=== PATIENT | male | born 1970 | race Caucasian/White ===

== ENCOUNTER 2022-05-14 07:50 | Outpatient (CLI) | payer MEDICARE, SELFPAY ==
--- NOTE | 2022-06-02 16:42 | WPDHOMESLEEP ---
Sleep Study - Home Unattended Date of Study: 05/14/22 Ordering Provider: Lexy Ovalle DO Interpreting Provider: Lexy Ovalle DO Home Sleep Study Type: Apnea Link Air Height: 1.83 m Weight: 135.171 kg Body Mass Index: 40.4 Neck Circumference (inches): 19 [place]: 5 Reason for Sleep Study Loud snoring Sleep History The patient is a 52-year-old male with anxiety, depression, celiac disease, chronic pain, hyperlipidemia, schizophrenia,. And history of tobacco use that had a sleep study ordered for evaluation of sleep apnea. The patient occasionally awakens from sleep short of breath. He rarely awakens at night with heartburn, belching or cough. He constantly snores loud enough that others complain. He frequently has trouble sleeping when he has a cold. He rarely wakes up gasping for air throughout the night. He frequently has breathing problems at night observed by himself or others. He denies sweating excessively at night. He denies having heart palpitations or irregular heartbeats during the night. He rarely falls asleep during the day rarely falls asleep while driving. He denies cataplexy. He rarely has trouble at school or work due to sleepiness. He occasionally feels unable to move while waking up or falling asleep. He denies experiencing vivid dreamlike scenes upon awakening or falling asleep. He constantly feels afraid of going to sleep. He rarely has nightmares rarely remembers his dreams. He occasionally has thoughts racing through his mind. He rarely feels sad or depressed. He occasionally has anxiety. He constantly has muscular tension. He occasionally notices parts of his body jerk. He rarely kicks during the night. He denies having crawling and aching feelings in his legs but constantly has leg pain during the night. He occasionally grinds his teeth during sleep rarely awakens with a morning type pain. He is constantly bothered by pain during the day and rarely awakened by pain during the night. He frequently wakes up feeling stiff in the morning. He occasionally wakes up with sore or achy muscles. He rarely wakes up with pain in the neck, spine and other joints. He goes to bed at 1:00 a.m. on weekdays and between 1-3 a.m. on the weekends. It takes him 20-30 minutes to fall asleep. He wakes up 2-4 times at the night to urinate. He is able to fall back asleep within 10-30 minutes. He wakes up at 9:00 a.m. on weekdays between 9:00 a.m. to noon the weekends. He typically gets 6-8 hours of sleep per night. He will stay in bed for 5-10 minutes after waking up in the morning. He will consume caffeinated beverages within 2 hours of bedtime. He does not engage in physical exercise before bedtime. He he will read and watch television before falling asleep. He denies taking naps in the afternoon or the evening. He will drink caffeinated beverages throughout the day. He rarely drinks. He quit smoking cigarettes 14 years ago. He denies recreational drug use. [facility] Past Medical History Medical History Celiac disease Chronic pain Hyperlipidemia Schizophrenia Surgical History Surgical History Previous back surgery Lumbar injections 04/30/2021 Family History Family History Other Diabetes mellitus Family history of alcoholism Family history of cardiovascular disease Family history of lung disease Family history of malignant neoplasm Family history of mental disorder Social History Social History Social History: Caffeine-coffee,tea,soda Smoking status: Former smoker Smoking end date: 06/17/07 Alcohol intake: current Alcohol use details: yearly Substance use: current Substance use type: marijuana Medications Home Medications Medica
[2022-06-02 16:55] VITALS: BMI 40.4
--- NOTE | 2022-09-14 10:29 | SLEEP ---
new calls [phone]
== END 2022-05-15 10:29 | disposition home or self-care (01) ==
LOC: ANHCSM 07:55
PROVIDERS: PCP Family Medicine; Visit Provider Family Medicine
DX: G47.9 Sleep disorder, unspecified (principal); G47.33 Obstructive sleep apnea (adult) (pediatric)
CPT/HCPCS: 95806

== ENCOUNTER 2022-07-27 08:06 | Outpatient (CLI) | payer MEDICARE, MEDICAID, SELFPAY ==
--- NOTE | 2022-08-20 17:35 | WPDSLEEPSTUD ---
Sleep Study Date of Study: 07/27/22 Ordering Provider: Lexy Ovalle DO Interpreting Physician: Gwendolyn Faustin MD Sleep Study Type: CPAP Titration Height: 1.82 m Weight: 131.542 kg Body Mass Index: 39.9 Neck Circumference (inches): 20 [place]: 5 Reason for Sleep Study * 05/14/2022- Home sleep test with Apnea Link showing severe obstructive sleep apnea, AHI 42.9, desaturation 83% The patient presents for a PAP titration. Sleep History Fernando Salas is a 52-year-old man with anxiety, depression, celiac disease, chronic pain, hyperlipidemia, and schizophrenia.?He occasionally awakens from sleep short of breath.? He rarely awakens at night with heartburn, belching or coughing.? He constantly snores loudly enough that others complain.? He frequently has trouble sleeping when he has a cold.? He rarely wakes up gasping for air during the night.? He frequently has breathing problems at night observed by himself or others.? He denies sweating excessively at night.? He denies having heart palpitations or irregular heartbeats during the night.? He rarely falls asleep during the day rarely falls asleep while driving.? He denies cataplexy.? He rarely has trouble at school or work due to sleepiness.? He occasionally feels unable to move while waking up or falling asleep.? He denies experiencing vivid dreamlike scenes upon awakening or falling asleep.? He constantly feels afraid of going to sleep.? He rarely has nightmares rarely remembers his dreams.? He occasionally has thoughts racing through his mind.? He rarely feels sad or depressed.? He occasionally has anxiety.? He constantly has muscular tension.? He occasionally notices parts of his body jerk.? He rarely kicks during the night.? He denies having crawling and aching feelings in his legs but constantly has leg pain during the night.? He occasionally grinds his teeth during sleep rarely awakens with a morning type pain.? He is constantly bothered by pain during the day and rarely awakened by pain during the night.? He frequently wakes up feeling stiff in the morning.? He occasionally wakes up with sore or achy muscles.? He rarely wakes up with pain in the neck, spine and other joints.? Normal bedtime is 1:00 a.m. on weekdays and between 1:00 to 3:00 am on weekends.? It takes him 20-30 minutes to fall asleep.? He wakes up 2-4 times at the night to urinate.? He is able to return to sleep within 10-30 minutes.? He wakes up at 9:00 a.m. on weekdays between 9:00 a.m. to noon the weekends.? He typically gets 6-8 hours of sleep per night.? He will stay in bed for 5-10 minutes after waking up in the morning.? He will consume caffeinated beverages within 2 hours of bedtime.? He denies taking naps in the afternoon or the evening.? Habits: Tobacco: quit 14 years ago. Caffeine: He drinks caffeinated beverages throughout the day.? Alcohol: He rarely drinks alcohol, denies recreational substance. [facility] Past Medical History Medical History Celiac disease Chronic pain Hyperlipidemia Schizophrenia Surgical History Surgical History Previous back surgery Lumbar injections 04/30/2021 Family History Family History Other Diabetes mellitus Family history of alcoholism Family history of cardiovascular disease Family history of lung disease Family history of malignant neoplasm Family history of mental disorder Social History Social History Social History: Caffeine-coffee,tea,soda Smoking status: Former smoker Smoking end date: 06/17/07 Alcohol intake: current Alcohol use details: yearly Substance use: current Substance use type: marijuana Medications Home Medications Medication Instructions Recorded Confirmed Type baclofen 10 mg tablet 10 mg PO BID 11/15/20 10
[2022-08-20 18:50] VITALS: BMI 39.9
== END 2022-07-28 07:03 | disposition home or self-care (01) ==
LOC: ANHCSM 08:07
PROVIDERS: PCP Family Medicine; Visit Provider Family Medicine
DX: G47.33 Obstructive sleep apnea (adult) (pediatric) (principal); K90.0 Celiac disease; E78.5 Hyperlipidemia, unspecified; F20.9 Schizophrenia, unspecified; Z87.891 Personal history of nicotine dependence
CPT/HCPCS: 95811

== ENCOUNTER 2022-08-29 00:54 | Day surgery (SDC) | payer MEDICARE, MEDICAID, SELFPAY ==
[2022-08-21 12:36] VITALS: BMI 40.2
[2022-08-29] VITALS (7 sets, daily range): BP systolic 94–138; BP diastolic 47–88; PULSE 63–76; RESP 18–24; TEMP 36.6; O2SAT 96–100
[2022-08-29] MEDS: LACTATED RINGERS 1,000 ML 150 ML IV CONT (09:45)
--- NOTE | 2022-08-29 10:18 | WPDANESEPPF ---
Anes - Initial Pre Proc Eval Procedure: Operation Date: 08/29/22 10:30 Proposed Procedures p Screening Colonoscopy - Santos Restrepo MD Date/Time: 08/29/22 10:18 Surgeon: Santos Restrepo MD Pre Op Diagnosis: neoplasm screening Patient Data Age: 52 Gender: M Height: 1.8 m Weight: 129.7 kg Last Vital Signs Temp 97.8 F 08/29/22 09:32 Pulse 76 08/29/22 09:32 Resp 18 08/29/22 09:32 BP 138/88 08/29/22 09:32 Pulse Ox 96 08/29/22 09:32 O2 Del Method Room Air 08/29/22 09:32 Allergies Allergy/AdvReac Type Severity Reaction Status Date / Time fluphenazine Allergy Unknown Organ Verified 08/29/22 09:30 shutdown gluten Allergy Unknown Other Verified 08/29/22 09:30 haloperidol Allergy Unknown Organ Verified 08/29/22 09:30 shutdown Home Medications Medication Instructions Recorded Confirmed Type baclofen 10 mg tablet 10 mg PO BID 11/15/20 08/21/22 History naltrexone 50 mg tablet 4.5 mg PO DAILY 11/15/20 08/21/22 History gabapentin 300 mg capsule 600 mg PO TID 11/03/21 08/21/22 History omeprazole 20 mg capsule,delayed 20 mg PO DAILY #14 caps 11/03/21 08/21/22 Rx release mirtazapine 30 mg tablet 30 mg PO .HS 03/15/22 08/21/22 History multivitamin 1 tablet PO DAILY 04/11/22 08/21/22 History atorvastatin 20 mg tablet 20 mg PO QHS #90 tabs 05/14/22 08/21/22 Rx CPAP Equipment #1 ea 08/21/22 Rx Patient hx anesthesia problems: none Family hx anesthesia problems: none Results Review: All pre-operative results and documents have been reviewed as part of the pre-operative evaluation. ON LICENSE OF [facility] Past Medical History Medical History Celiac disease Chronic pain Hyperlipidemia Schizophrenia Surgical History Surgical History Previous back surgery Lumbar injections 04/30/2021 Family History Family History Other Diabetes mellitus Family history of alcoholism Family history of cardiovascular disease Family history of lung disease Family history of malignant neoplasm Family history of mental disorder Social History Social History Social History: Caffeine-coffee,tea,soda Years smoked: 1 Smoking status: Former smoker Tobacco type: cigarettes Smoking end date: 06/17/07 Alcohol intake: current Alcohol use details: yearly Substance use: current Substance use type: marijuana Other substance usage details: marijuana rarely Spiritual care concerns: No Anes - Eval Final PreProcedure Day of Procedure 08/29/22 10:18 Patient weight: morbidly obese Heart: regular rate and rhythm Lungs: clear to auscultation Airway: Mallampati scale class III Neurological: alert and oriented Last oral intake: >/= 8 hours ASA classification: III Emergent: no Anesthetic plan: proceed Anesthesia type and monitoring: general GIVS and standard monitoring Results Review: All pre-operative results and documents have been reviewed as part of the pre-operative evaluation. Informed Consent: The patient's anesthetic plan and its attendant risks and benefits were discussed with the patient/family/POA. Questions were solicited and answers provided to the satisfaction of the patient/family/POA.
--- NOTE | 2022-08-29 10:28 | PM.HPGS ---
History of Present Illness History of Present Illness Consent: Risks, benefits, and alternatives have been discussed and questions answered. Patient agrees to proceed with procedure. Chief complaint: neoplasm screening Narrative: Fernando Salas is a 52 year old male here for first screening colonoscopy Review of Systems Constitutional: Constitutional: Denies headache(s) and Denies weakness Eyes: Eyes: Denies blurry vision ENT: Reports Normal hearing present, Denies headache(s) and Denies neck pain Cardiovascular: Cardiovascular: Denies chest pain and Denies dyspnea Respiratory: Respiratory: Denies dyspnea Gastrointestinal: Gastrointestinal: Reports no additional gastrointestinal complaints Genitourinary: Genitourinary: Denies dysuria Musculoskeletal: Musculoskeletal: Denies neck pain Integumentary/Breasts: Skin/Breast: Denies dry skin Neurologic: Reports Normal hearing present, Denies headache(s) and Denies weakness Psychiatric: Psychiatric: Denies anxiety Endocrine: Endocrine: Denies change in body appearance Hematologic/Lymphatic: Hematologic/Lymphatic: Denies easy bleeding Allergic/Immunologic: Allergic/Immunologic: Denies urticaria PMF Past Medical History Medical History (Updated 08/29/22 @ 10:29 by Santos Restrepo MD) Celiac disease Chronic pain Colon cancer screening Hyperlipidemia Schizophrenia Surgical History Surgical History Previous back surgery Lumbar injections 04/30/2021 Family History Family History Other Diabetes mellitus Family history of alcoholism Family history of cardiovascular disease Family history of lung disease Family history of malignant neoplasm Family history of mental disorder Social History Social History Social History: Caffeine-coffee,tea,soda Years smoked: 1 Smoking status: Former smoker Tobacco type: cigarettes Smoking end date: 06/17/07 Alcohol intake: current Alcohol use details: yearly Substance use: current Substance use type: marijuana Other substance usage details: marijuana rarely Spiritual care concerns: No Meds Home Medications and Allergies Home Medications Medication Instructions Recorded Confirmed Type baclofen 10 mg tablet 10 mg PO BID 11/15/20 08/21/22 History naltrexone 50 mg tablet 4.5 mg PO DAILY 11/15/20 08/21/22 History gabapentin 300 mg capsule 600 mg PO TID 11/03/21 08/21/22 History omeprazole 20 mg capsule,delayed 20 mg PO DAILY #14 caps 11/03/21 08/21/22 Rx release mirtazapine 30 mg tablet 30 mg PO .HS 03/15/22 08/21/22 History multivitamin 1 tablet PO DAILY 04/11/22 08/21/22 History atorvastatin 20 mg tablet 20 mg PO QHS #90 tabs 05/14/22 08/21/22 Rx CPAP Equipment #1 ea 08/21/22 Rx Allergies Allergy/AdvReac Type Severity Reaction Status Date / Time fluphenazine Allergy Unknown Organ Verified 08/29/22 09:30 shutdown gluten Allergy Unknown Other Verified 08/29/22 09:30 haloperidol Allergy Unknown Organ Verified 08/29/22 09:30 shutdown Vital Signs Vital Signs - 24 hr 08/29/22 09:32 Temperature 97.8 F Pulse Rate 76 Respiratory Rate 18 Blood Pressure 138/88 Pulse Oximetry 96 Oxygen Delivery Room Air Exam Const: General: comfortable and no acute distress HENMT: Face/Nose/Sinus: Normal nares present Eyes: General: appearance normal, both eyes and all related structures Neck: Neck: no JVD Resp: Auscultation: clear to auscultation bilaterally Cardio: Rate: regular rate Rhythm: regular rhythm GI: Inspection: non-distended GI Palp: Yes Soft to palpation Skin: General skin exam: normal color Neuro: General: gait normal Speech: normal speech Extrem: General: normal to inspection Psych: Mental Status: mental status grossly normal Assessment and Plan Assessment a
== END 2022-08-29 12:00 | disposition home or self-care (01) ==
PROVIDERS: PCP Family Medicine; Visit Provider Internal Medicine Gastroenterology
PROC: 0DJD8ZZ Inspection of Lower Intestinal Tract, Via Natural or Artificial Opening Endoscopic (ICD-10-PCS; CPT 45378; principal; 2022-08-29 10:30)
DX: Z12.11 Encounter for screening for malignant neoplasm of colon (principal); D12.4 Benign neoplasm of descending colon; K64.8 Other hemorrhoids; E78.5 Hyperlipidemia, unspecified; F20.9 Schizophrenia, unspecified; Z87.891 Personal history of nicotine dependence
CPT/HCPCS: 45385; 88305; J2704; J7120